=== PATIENT | male | born 1955 | race Caucasian/White ===

== ENCOUNTER 2018-05-03 03:11 | Emergency (ER) | payer BC, OTHER ==
[~2018-05-03] VITALS: Ht 170.2 cm; Wt 64.0 kg
[~2018-05-03 03:11] MED LIST: AMLO1CAP6 PO; ASPI-1159 PO; METF-517 PO; SIMV10TA6 PO; SITA100T11 PO
[2018-05-03] MEDS ORDERED: METHYLPREDNISOLONE SOD SUCC 125 MG/2 ML VIAL IV ONE (04:30)
[2018-05-03] MEDS ORDERED: FAMOTIDINE 20MG TABLET PO ONE (04:30)
[2018-05-03] MEDS ORDERED: DIPHENHYDRAMINE 25MG CAPSULE PO ONE (04:30)
[2018-05-03 06:20] VITALS: BP 124/63
== END 2018-05-03 06:20 | disposition home or self-care (01) ==
LOC: ER 03:11
DX: T78.40XA Allergy, unspecified, initial encounter (principal); X58.XXXA Exposure to other specified factors, initial encounter; E11.9 Type 2 diabetes mellitus without complications; I10 Essential (primary) hypertension; R21 Rash and other nonspecific skin eruption; M79.89 Other specified soft tissue disorders; Z79.82 Long term (current) use of aspirin; Z79.899 Other long term (current) drug therapy
CPT/HCPCS: 96374; 99284; J2930; Q0163

== ENCOUNTER 2024-04-20 13:48 | Inpatient (IN) | payer BC, OTHER ==
[~2024-04-20] VITALS: Ht 170.2 cm; Wt 60.1 kg
[~2024-04-20 13:48] MED LIST changes: -ASPI-1159 PO; +ASPI-1497 PO; -METF-517 PO; +METF-817 PO; -SIMV10TA6 PO; +SIMV10TA97 PO
[2024-04-20 15:29] LABS: BASOPHILS % 0.6 % (0.0-2.0); EOSINOPHILS % 4.2 % (0.0-5.0); HEMATOCRIT. 36.9 % (42.0-52.0); HEMOGLOBIN. 12.3 g/dL (14.0-18.0); MEAN CORPUSCULAR HEMOGLOBIN 28.7 pg (28.0-32.0); MEAN CORPUSCULAR HGB CONC 33.5 g/dL (31.0-37.0); MEAN CORPUSCULAR VOLUME 85.6 fL (80.0-94.0); MEAN PLATELET VOLUME 8.6 fl (7.4-10.4); MONOCYTES % 12.9 % (2.0-8.0); NEUTROPHILS % 68.3 % (40.0-76.0); PLATELET 208 x1000/uL (130-400); RED CELL DISTRIBUTION WIDTH 15.6 % (11.6-14.6); WHITE BLOOD COUNT 5.5 x1000/uL (4.5-11.0)
[2024-04-20 15:33] LABS: CHLORIDE 104 mEq/L (98-107); POTASSIUM 3.8 mEq/L (3.5-5.1); SODIUM 134 mEq/L (136-145)
[2024-04-20 15:34] LABS: CARBON DIOXIDE 26 mEq/L (21-32)
[2024-04-20 15:39] LABS: CREATININE 1.1 mg/dL (0.6-1.3); GLUCOSE 85 mg/dL (70-105); TROPONIN I HIGH SENSITIVITY 5 ng/L (3.0-53); UREA NITROGEN BLOOD 11 mg/dL (9-23)
[2024-04-20 15:41] LABS: ALANINE AMINOTRANSFERASE 49 IU/L (10-49); ALBUMIN 4.2 g/dL (3.2-4.8); ASPARTATE AMINOTRANSFERASE 87 IU/L (<34); BILIRUBIN DIRECT 0.3 mg/dL (<=3.0); BILIRUBIN TOTAL 1.1 mg/dL (0.1-1.0); PROTEIN TOTAL 7.1 g/dL (6.0-8.3)
[2024-04-20] MEDS ORDERED: KETOROLAC 15MG/ML VIAL IV PRN (19:15)
[2024-04-20] MEDS ORDERED: HYDRALAZINE 20MG/ML VIAL IV PRN (19:15)
[2024-04-20] MEDS ORDERED: DEXTROSE 50% WATER 50ML SYRINGE IV PRN (19:15)
[2024-04-20] MEDS ORDERED: ONDANSETRON HCL 4MG/2ML INJ IV PRN (19:15)
[2024-04-20 20:16] LABS: IRON 45 ug/dL (65-175)
[2024-04-20 20:19] LABS: TOTAL IRON BINDING CAPACITY 289 ug/dl (250-425)
[2024-04-20] MEDS: BLOOD SUGAR DIAGNOSTIC STRIP TEST SCH (21:00)
[2024-04-20] MEDS: INSULIN LISPRO 100 UNITS/ML SUBCUT SCH (21:00)
[2024-04-20 22:00] VITALS: BP 131/61; PULSE 84; RESP 20; TEMP 36.61404; O2SAT 97
[2024-04-20] MEDS ORDERED: IPRATROPIUM/ALBUTEROL 0.5-3(2.5)MG/3ML NEB HHN PRN (22:00)
[2024-04-20] MEDS ORDERED: METRONIDAZOLE 500 MG PREMIX 100 ML IV SCH (22:00)
[2024-04-20] MEDS: FINASTERIDE 5MG TABLET PO SCH (22:13)
[2024-04-20] MEDS: ATORVASTATIN CALCIUM 40MG TABLET PO SCH (22:13)
[2024-04-20] MEDS: TAMSULOSIN HCL 0.4MG SR CAPSULE PO SCH (22:14)
[2024-04-20] MEDS: SODIUM CHLORIDE 0.9% 1,000 ML IV SCH (22:15)
[2024-04-20 22:30] VITALS: BP 131/61; PULSE 84; RESP 20; TEMP 36.6404
[2024-04-20] MEDS: CEFTRIAXONE 1GM/50ML 50 ML IV SCH (22:51)
[2024-04-20] MEDS: METRONIDAZOLE 500 MG PREMIX 100 ML IV SCH (23:51)
[2024-04-21] VITALS: BP 120/65; PULSE 78; RESP 17; TEMP 37.16964; O2SAT 95
[2024-04-21 00:56] LABS: CREATINE KINASE MB FRACTION < 0.5 ng/mL (0.5-3.6)
[2024-04-21 00:57] LABS: CREATINE KINASE 75 IU/L (46-171); TROPONIN I HIGH SENSITIVITY 5 ng/L (3.0-53)
[2024-04-21 04:00] VITALS: BP 108/62; PULSE 78; RESP 18; TEMP 37.33632; O2SAT 95
[2024-04-21 06:05] LABS: CARBON DIOXIDE 20 mEq/L (21-32); CHLORIDE 103 mEq/L (98-107); POTASSIUM 3.8 mEq/L (3.5-5.1); SODIUM 132 mEq/L (136-145)
[2024-04-21 06:06] LABS: CALCIUM 8.5 mg/dL (8.7-10.4)
[2024-04-21 06:11] LABS: CREATININE 0.9 mg/dL (0.6-1.3); GLUCOSE 82 mg/dL (70-105); UREA NITROGEN BLOOD 11 mg/dL (9-23)
[2024-04-21 06:14] LABS: CREATINE KINASE MB FRACTION < 0.5 ng/mL (0.5-3.6); T4 FREE 1.38 ng/dL (0.89-1.76); THYROID STIMULATING HORMONE 0.18 uIU/mL (0.55-4.78); TROPONIN I HIGH SENSITIVITY 6 ng/L (3.0-53)
[2024-04-21 06:15] LABS: CREATINE KINASE 69 IU/L (46-171); HEMATOCRIT. 37.8 % (42.0-52.0); HEMOGLOBIN. 12.5 g/dL (14.0-18.0); MEAN CORPUSCULAR HEMOGLOBIN 28.3 pg (28.0-32.0); MEAN CORPUSCULAR HGB CONC 33.1 g/dL (31.0-37.0); MEAN CORPUSCULAR VOLUME 85.5 fL (80.0-94.0); MEAN PLATELET VOLUME 9.1 fl (7.4-10.4); PLATELET 158 x1000/uL (130-400); RED BLOOD CELL COUNT 4.42 mill/uL (4.7-6.1); RED CELL DISTRIBUTION WIDTH 15.5 % (11.6-14.6); WHITE BLOOD COUNT 3.6 x1000/uL (4.5-11.0)
[2024-04-21] MEDS: PANTOPRAZOLE 40MG DR TABLET PO SCH (06:22)
[2024-04-21 06:51] LABS: DIFFERENTIAL COMMENT 1
[2024-04-21 08:00] VITALS: BP 115/80; RESP 16; TEMP 38.22528; O2SAT 97
[2024-04-21] MEDS ORDERED: BENAZEPRIL 10MG TABLET PO SCH (09:00)
[2024-04-21] MEDS: ACETAMINOPHEN 325MG TABLET PO PRN (10:28)
[2024-04-21] MEDS: LISINOPRIL 20MG TABLET PO SCH (10:28)
[2024-04-21] MEDS: AMLODIPINE 5MG TABLET PO SCH (10:28)
[2024-04-21 12:00] VITALS: BP 97/63; PULSE 66; RESP 16; TEMP 36.78072; O2SAT 98
[2024-04-21 15:44] LABS: PLATELET ESTIMATE NORMAL
[2024-04-21] MEDS: CEFTRIAXONE 1GM/50ML 50 ML IV SCH (19:41)
[2024-04-21 20:00] VITALS: BP 109/60; PULSE 82; RESP 18; TEMP 39.22536; O2SAT 97
[2024-04-21 20:10] LABS: CLARITY URINE CLEAR (CLEAR); COLOR URINE YELLOW (YELLOW); GLUCOSE URINE 3+ (NEGATIVE); KETONES URINE TRACE (NEGATIVE); LEUKOCYTE ESTERASE URINE NEGATIVE (NEGATIVE); NITRITE URINE NEGATIVE (NEGATIVE); OCCULT BLOOD URINE NEGATIVE (NEGATIVE); PROTEIN URINE NEGATIVE (NEGATIVE); SPECIFIC GRAVITY URINE 1.014 (1.005-1.030); UROBILINOGEN URINE 0.2 E.U./dL (0.2-1.0)
[2024-04-21 20:14] LABS: *AMPHETAMINES SCREEN URINE NEGATIVE (NEGATIVE); *BARBITURATES SCREEN URINE NEGATIVE (NEGATIVE); *BENZODIAZEPINES SCREEN URINE NEGATIVE (NEGATIVE); *COCAINE SCREEN URINE NEGATIVE (NEGATIVE); METHADONE URINE SCREEN NEGATIVE (NEGATIVE); OPIATES URINE SCREEN NEGATIVE (NEGATIVE)
[2024-04-21 20:15] LABS: CANNABINOID URINE SCREEN NEGATIVE (NEGATIVE); ECSTASY MDMA SCREEN URINE NEGATIVE (NEGATIVE); PHENCYCLIDINE URINE SCREEN NEGATIVE (NEGATIVE)
[2024-04-21 20:26] LABS: BACTERIA URINE 1+; RBC URINE NONE SEEN /hpf (0-2); SQUAMOUS EPITHELIAL CELL URINE NONE SEEN /lpf (RARE/1+); WBC URINE 0-2 /hpf (0-2); YEAST URINE NONE SEEN
[2024-04-21] MEDS: SODIUM CHLORIDE 0.9% 1,000 ML IV SCH (20:57)
[2024-04-21 21:20] VITALS: TEMP 37.39188
[2024-04-22] VITALS: BP 104/53; PULSE 78; RESP 17; TEMP 36.3918; O2SAT 99
[2024-04-22 04:00] VITALS: BP 99/58; PULSE 83; RESP 18; TEMP 36.44736; O2SAT 99
[2024-04-22 08:00] VITALS: BP 102/58; PULSE 81; RESP 20; TEMP 39.00312; O2SAT 98
[2024-04-22 09:00] LABS: BASOPHILS % 0.6 % (0.0-2.0); EOSINOPHILS % 0.2 % (0.0-5.0); HEMATOCRIT. 40.6 % (42.0-52.0); HEMOGLOBIN. 13.1 g/dL (14.0-18.0); LYMPHOCYTES % 37.2 % (20.0-50.0); MEAN CORPUSCULAR HEMOGLOBIN 27.6 pg (28.0-32.0); MEAN CORPUSCULAR HGB CONC 32.3 g/dL (31.0-37.0); MEAN CORPUSCULAR VOLUME 85.5 fL (80.0-94.0); MEAN PLATELET VOLUME 9.1 fl (7.4-10.4); MONOCYTES % 11.4 % (2.0-8.0); NEUTROPHILS % 50.6 % (40.0-76.0); PLATELET 145 x1000/uL (130-400); RED BLOOD CELL COUNT 4.75 mill/uL (4.7-6.1); RED CELL DISTRIBUTION WIDTH 15.6 % (11.6-14.6); WHITE BLOOD COUNT 3.4 x1000/uL (4.5-11.0)
[2024-04-22 09:06] LABS: CHLORIDE 108 mEq/L (98-107); SODIUM 135 mEq/L (136-145)
[2024-04-22 09:07] LABS: CALCIUM 8.4 mg/dL (8.7-10.4); CARBON DIOXIDE 16 mEq/L (21-32)
[2024-04-22 09:12] LABS: GLUCOSE 116 mg/dL (70-105); UREA NITROGEN BLOOD 13 mg/dL (9-23)
[2024-04-22 12:00] VITALS: BP 132/74; PULSE 78; RESP 18; TEMP 37.7808; O2SAT 97
[2024-04-22] MEDS: CITRIC ACID/SODIUM CITRATE SOLN 30ML UDC PO SCH (14:50)
[2024-04-22 16:13] VITALS: BP 141/69; PULSE 71; RESP 20; TEMP 38.892; O2SAT 98
[2024-04-22 20:00] VITALS: BP 104/56; PULSE 67; RESP 18; TEMP 38.28084; O2SAT 97
[2024-04-22] MEDS: DOXYCYCLINE HYCLATE 100MG CAPSULE PO SCH (21:31)
[2024-04-23] VITALS: BP 109/52; PULSE 65; RESP 16; TEMP 37.2252; O2SAT 98
[2024-04-23 04:00] VITALS: BP 102/56; PULSE 72; RESP 18; TEMP 38.39196; O2SAT 97
[2024-04-23 07:35] LABS: BASOPHILS % 0.9 % (0.0-2.0); EOSINOPHILS % 0.8 % (0.0-5.0); HEMOGLOBIN. 12.7 g/dL (14.0-18.0); LYMPHOCYTES % 42.8 % (20.0-50.0); MEAN CORPUSCULAR HEMOGLOBIN 28.4 pg (28.0-32.0); MEAN CORPUSCULAR HGB CONC 33.3 g/dL (31.0-37.0); MEAN CORPUSCULAR VOLUME 85.2 fL (80.0-94.0); MEAN PLATELET VOLUME 9.4 fl (7.4-10.4); MONOCYTES % 11.1 % (2.0-8.0); NEUTROPHILS % 44.4 % (40.0-76.0); PLATELET 143 x1000/uL (130-400); RED BLOOD CELL COUNT 4.46 mill/uL (4.7-6.1); RED CELL DISTRIBUTION WIDTH 15.4 % (11.6-14.6); WHITE BLOOD COUNT 2.1 x1000/uL (4.5-11.0)
[2024-04-23 07:36] LABS: CALCIUM 8.5 mg/dL (8.7-10.4); CHLORIDE 107 mEq/L (98-107); POTASSIUM 4.6 mEq/L (3.5-5.1); SODIUM 135 mEq/L (136-145)
[2024-04-23 07:37] LABS: CARBON DIOXIDE 19 mEq/L (21-32)
[2024-04-23 07:42] LABS: CREATININE 0.9 mg/dL (0.6-1.3); GLUCOSE 148 mg/dL (70-105); UREA NITROGEN BLOOD 9 mg/dL (9-23)
[2024-04-23 07:43] LABS: LACTATE DEHYDROGENASE 236 IU/L (120-246)
[2024-04-23 07:46] LABS: ALANINE AMINOTRANSFERASE 58 IU/L (10-49); ASPARTATE AMINOTRANSFERASE 122 IU/L (<34)
[2024-04-23 07:48] LABS: ALBUMIN 3.4 g/dL (3.2-4.8); BILIRUBIN DIRECT 0.2 mg/dL (<=3.0); BILIRUBIN TOTAL 0.5 mg/dL (0.1-1.0); PROTEIN TOTAL 5.9 g/dL (6.0-8.3)
[2024-04-23 08:00] VITALS: BP 94/51; PULSE 79; RESP 18; TEMP 37.66968; O2SAT 97
[2024-04-23 12:00] VITALS: BP 125/71; PULSE 74; RESP 18; TEMP 38.72532; O2SAT 97
[2024-04-23 16:00] VITALS: BP 113/60; PULSE 65; RESP 18; TEMP 37.11408; O2SAT 98
[2024-04-23 20:00] VITALS: BP 126/62; PULSE 68; RESP 18; TEMP 37.00296; O2SAT 98
[2024-04-24] VITALS: BP 120/58; PULSE 70; RESP 17; TEMP 36.9474; O2SAT 97
[2024-04-24 04:00] VITALS: BP 126/64; PULSE 77; RESP 18; TEMP 36.89184; O2SAT 99
[2024-04-24 05:49] LABS: BASOPHILS % 1.4 % (0.0-2.0); EOSINOPHILS % 0.3 % (0.0-5.0); HEMOGLOBIN. 12.4 g/dL (14.0-18.0); LYMPHOCYTES % 39.7 % (20.0-50.0); MEAN CORPUSCULAR HEMOGLOBIN 27.5 pg (28.0-32.0); MEAN CORPUSCULAR HGB CONC 32.5 g/dL (31.0-37.0); MEAN CORPUSCULAR VOLUME 84.6 fL (80.0-94.0); MEAN PLATELET VOLUME 9.3 fl (7.4-10.4); MONOCYTES % 13.2 % (2.0-8.0); NEUTROPHILS % 45.4 % (40.0-76.0); PLATELET 121 x1000/uL (130-400); RED CELL DISTRIBUTION WIDTH 14.9 % (11.6-14.6); WHITE BLOOD COUNT 2.4 x1000/uL (4.5-11.0)
[2024-04-24 06:02] LABS: CHLORIDE 106 mEq/L (98-107); POTASSIUM 3.9 mEq/L (3.5-5.1); SODIUM 134 mEq/L (136-145)
[2024-04-24 06:05] LABS: CALCIUM 8.1 mg/dL (8.7-10.4); CARBON DIOXIDE 20 mEq/L (21-32)
[2024-04-24 06:10] LABS: ALANINE AMINOTRANSFERASE 59 IU/L (10-49); CREATININE 0.8 mg/dL (0.6-1.3); GLUCOSE 160 mg/dL (70-105); UREA NITROGEN BLOOD 6 mg/dL (9-23)
[2024-04-24 06:11] LABS: ALBUMIN 3.3 g/dL (3.2-4.8); ASPARTATE AMINOTRANSFERASE 122 IU/L (<34)
[2024-04-24 06:12] LABS: BILIRUBIN DIRECT 0.2 mg/dL (<=3.0)
[2024-04-24 06:13] LABS: BILIRUBIN TOTAL 0.5 mg/dL (0.1-1.0); PROTEIN TOTAL 5.9 g/dL (6.0-8.3)
[2024-04-24 08:00] VITALS: BP 132/60; PULSE 74; RESP 18; TEMP 36.16956; O2SAT 98
[2024-04-24 12:00] VITALS: BP 116/76; PULSE 79; RESP 20; TEMP 36.3918; O2SAT 98
[2024-04-24 15:54] VITALS: BP 121/68; PULSE 68; RESP 16; TEMP 36.55848; O2SAT 100
[2024-04-24 20:00] VITALS: BP 111/56; PULSE 71; RESP 18; TEMP 36.89184; O2SAT 96
[2024-04-24 21:11] LABS: HEPATITIS B SURFACE ANTIGEN NEGATIVE (Negative)
[2024-04-24 21:32] LABS: HEPATITIS B CORE AB IGM NEGATIVE (Negative)
[2024-04-24 21:33] LABS: HEPATITIS A AB IGM NEGATIVE (Negative); HEPATITIS C AB NON REACTIVE (Neg) (Negative)
[2024-04-25] VITALS: BP 106/60; PULSE 63; RESP 18; TEMP 36.72516; O2SAT 99
[2024-04-25 04:00] VITALS: BP 91/59; PULSE 72; RESP 18; TEMP 36.50292; O2SAT 95
[2024-04-25 06:40] LABS: HEMATOCRIT. 38.2 % (42.0-52.0); HEMOGLOBIN. 12.3 g/dL (14.0-18.0); MEAN CORPUSCULAR HEMOGLOBIN 27.5 pg (28.0-32.0); MEAN CORPUSCULAR HGB CONC 32.3 g/dL (31.0-37.0); MEAN PLATELET VOLUME 9.6 fl (7.4-10.4); PLATELET 93 x1000/uL (130-400); RED BLOOD CELL COUNT 4.49 mill/uL (4.7-6.1); RED CELL DISTRIBUTION WIDTH 15.1 % (11.6-14.6); WHITE BLOOD COUNT 2.9 x1000/uL (4.5-11.0)
[2024-04-25 06:45] LABS: CARBON DIOXIDE 21 mEq/L (21-32); CHLORIDE 107 mEq/L (98-107); POTASSIUM 3.9 mEq/L (3.5-5.1); SODIUM 136 mEq/L (136-145)
[2024-04-25 06:46] LABS: CALCIUM 8.4 mg/dL (8.7-10.4)
[2024-04-25 06:50] LABS: CREATININE 0.7 mg/dL (0.6-1.3)
[2024-04-25 06:51] LABS: GLUCOSE 145 mg/dL (70-105); UREA NITROGEN BLOOD 6 mg/dL (9-23)
[2024-04-25 06:52] LABS: DIFFERENTIAL COMMENT 1
[2024-04-25 06:53] LABS: ALBUMIN 3.3 g/dL (3.2-4.8); BILIRUBIN DIRECT 0.2 mg/dL (<=3.0)
[2024-04-25 06:54] LABS: ALANINE AMINOTRANSFERASE 58 IU/L (10-49); ASPARTATE AMINOTRANSFERASE 123 IU/L (<34); BILIRUBIN TOTAL 0.5 mg/dL (0.1-1.0); PROTEIN TOTAL 5.9 g/dL (6.0-8.3)
[2024-04-25 08:00] VITALS: BP 105/61; PULSE 74; RESP 20; TEMP 36.44736; O2SAT 94
[2024-04-25 09:52] LABS: ATYPICAL LYMPHOCYTES 2
[2024-04-25 09:53] LABS: PLATELET ESTIMATE SLIGHTLY DECREASED
[2024-04-25 12:00] VITALS: BP 101/61; PULSE 75; RESP 18; TEMP 36.44736; O2SAT 96
[2024-04-25 16:00] VITALS: BP 129/60; PULSE 69; RESP 18; TEMP 37.11408; O2SAT 98
[2024-04-25 18:04] VITALS: BP 120/60; PULSE 66; TEMP 97.6; O2SAT 97
== END 2024-04-25 19:00 | disposition home or self-care (01) | DRG 866 ==
LOC: ER 13:48 → EDBEDREQSVC 20:45 → EDBEDREQTM 20:45 → EDBEDREQ 20:45 → 5WST 21:29 → 8WST 21:45
PROVIDERS: ADMIT Internal Medicine; ATTEND Internal Medicine
DX: B34.9 Viral infection, unspecified (principal); E87.1 Hypo-osmolality and hyponatremia; E87.20 Acidosis, unspecified; R10.13 Epigastric pain; D69.6 Thrombocytopenia, unspecified; I10 Essential (primary) hypertension; E78.5 Hyperlipidemia, unspecified; D64.9 Anemia, unspecified; Z20.822 Contact with and (suspected) exposure to COVID-19; E11.9 Type 2 diabetes mellitus without complications; N40.0 Benign prostatic hyperplasia without lower urinary tract symptoms; D72.819 Decreased white blood cell count, unspecified; R74.01 Elevation of levels of liver transaminase levels; E80.6 Other disorders of bilirubin metabolism; Z79.899 Other long term (current) drug therapy
CPT/HCPCS: 36415; 71045; 74177; 80048; 80076; 80305; 81003; 82550; 82553; 82728; 82962; 83036; 83540; 83550; 83615; 84145; 84439; 84443; 84484; 85025; 85651; 86635; 86705; 86709; 86790; 87015; 87045; 87177; 87207; 87209; 87340; 87426; 87427; 87449; 87804; 93005; 93970; 99285; J0696; J1815; J3490; J7030